=== PATIENT | female | born 1960 | race Caucasian/White ===

== ENCOUNTER → 2016-05-06 | Outpatient (CLI) | payer OTHER | LOC: MAMO 14:30 | DX: Z12.31 Encounter for screening mammogram for malignant neoplasm of breast (principal); Z90.710 Acquired absence of both cervix and uterus | CPT/HCPCS: G0202 ==

== ENCOUNTER 2020-05-02 19:14 | Emergency (ER) | payer BC | END 2020-05-02 20:15 | disposition left against medical advice (07) | LOC: ER1 19:14 | DX: Z53.21 Procedure and treatment not carried out due to patient leaving prior to being seen by health care provider (principal) ==

== ENCOUNTER → 2021-09-13 | Outpatient (CLI) | payer BC | LOC: RAD 16:46 | DX: N20.0 Calculus of kidney (principal) | CPT/HCPCS: 74018 ==